=== PATIENT | male | born 1960 | race Caucasian/White ===

== ENCOUNTER → 2021-11-30 | Day surgery (SDC) | payer BC ==
[~2021-11-30] MED LIST: AMLODIPINE BESY10 MG PO; ASPIRIN81 MG PO; ATORVASTATIN CA20 MG PO; CARVEDILOL12.5 MG PO; CBD SL; CO Q10200 MG PO; DHEA 50 MG TAB1 EACH PO; ESTER-C 500 MG1 EACH PO; FIBER TABS625 MG PO; FLAX SEED OIL1 EACH PO; GINKGO BILOBA1 EACH PO; L-ARGININE1000 MG PO; L-CARNITINE500 M1 PO; LEVOTHYROXINE112 MCG PO; MILK THISTLE175 M2 PO; POVIDONE IODINE 0.05% 0.05 % ML PO ONE; PROPOFOL IV EMULSION 10 MG/ML 20 ML VIAL ONE; SAM-E400 MG PO; TURMERIC 450-51 EACH PO; UBIQUINOL100 MG PO; VITAMIN B COMP0.4 MG PO; VITAMIN B122500 MCG SL; VITAMIN D3 COM1 EACH PO; VITAMIN E400 UNI1 PO
[2021-11-30 11:45] VITALS: BP 118/88
== END | disposition home or self-care (01) ==
LOC: OR 08:35
PROVIDERS: ATTEND Internal Medicine Gastroenterology
DX: R19.4 Change in bowel habit (principal); R19.7 Diarrhea, unspecified; K64.1 Second degree hemorrhoids; I10 Essential (primary) hypertension; E78.5 Hyperlipidemia, unspecified; E03.9 Hypothyroidism, unspecified; Z88.4 Allergy status to anesthetic agent; Z01.810 Encounter for preprocedural cardiovascular examination; Z79.82 Long term (current) use of aspirin; Z79.899 Other long term (current) drug therapy; Z86.73 Personal history of transient ischemic attack (TIA), and cerebral infarction without residual deficits; Z80.0 Family history of malignant neoplasm of digestive organs
CPT/HCPCS: 45378; 93005